=== PATIENT | female | born 1995 | race Caucasian/White ===

== ENCOUNTER 2018-10-16 13:26 | Emergency (ER) | payer OTHER ==
[2018-10-16 13:52] VITALS: BP 100/59
[2018-10-16] MEDS ORDERED: Ondansetron ODT TAB* 4 MG PO ONE (14:06)
--- NOTE | 2018-10-16 14:08 | UC ---
Abdominal Pain Female HPI - HPI Summary HPI Summary: 23 year old female with no significant pmhx here with right sided abdominal pain with nausea and vomiting and diarrhea. Reports symptoms started about 6 days ago with right sided abdominal pain, sharp with radiation to the flank. Reports the following day she had several episodes of NBNB vomiting with diarrhea. Patient reports 3-4 episodes of vomiting with countless number of diarrhea with no blood. No fever or chills. - History of Current Complaint Chief Complaint: UCAbdominalPain Stated Complaint: RT SIDE ABD PAIN Time Seen by Provider: 10/16/18 13:41 Hx Last Menstrual Period: 10/06/18 Onset/Duration: Gradual Onset Timing: Constant Severity Initially: Mild Pain Intensity: 7 Location: Discrete At: RLQ Radiates to: Flank Associated Signs and Symptoms: Positive: Negative, Decreased Appetite, Nausea, Vomiting, Diarrhea. Negative: Urinary Symptoms Allergies/Adverse Reactions: Allergies Allergy/AdvReac Type Severity Reaction Status Date / Time No Known Allergies Allergy Verified 10/16/18 13:52 Home Medications: Home Medications Ibuprofen [Advil] 400 mg PO ONCE PRN 10/16/18 [History Confirmed 10/16/18] Norethindr/Eth Estradiol(Nf) [Lo Loestrin Fe (NF)] 1 tab PO DAILY 10/16/18 [ History Confirmed 10/16/18] PMH/Surg Hx/FS Hx/Imm Hx Previously Healthy: Yes - Surgical History Surgical History: None - Social History Alcohol Use: Occasionally Substance Use Type: None Smoking Status (MU): Never Smoked Tobacco Review of Systems All Other Systems Reviewed And Are Negative: Yes Constitutional: Positive: Negative Skin: Positive: Negative Eyes: Positive: Negative Respiratory: Positive: Negative Cardiovascular: Positive: Negative Gastrointestinal: Positive: Abdominal Pain, Vomiting, Diarrhea, Nausea Genitourinary: Positive: Negative Motor: Positive: Negative Neurovascular: Positive: Negative Neurological: Positive: Negative Is Patient Immunocompromised?: No Physical Exam Triage Information Reviewed: Yes Vital Signs: Initial Vital Signs Temp 36.8 C 10/16/18 13:42 Pulse 88 10/16/18 13:42 Resp 16 10/16/18 13:42 BP 100/59 10/16/18 13:42 Pulse Ox 99 10/16/18 13:42 Eye Exam: Normal ENT: Positive: Other - dry mucosal membrane Dental Exam: Normal Neck exam: Normal Neck: Positive: 1 Respiratory Exam: Normal Cardiovascular Exam: Normal Abdomen Description: Positive: Other: - right lower and sarah umblical tenderness with guarding Musculoskeletal Exam: Normal Neurological Exam: Normal Psychological Exam: Normal Skin Exam: Normal Abd Pain Female Course/Dx - Course Course Of Treatment: Patient's UA negative for leuk or blood but +ketones & increased specific gravity with positive uro. Negative . Will instruct patient to go to the ED to r/o appendicitis. She is non-toxic, but clinically hypovolemic. Will give zofran po and dc. - Differential Dx/Diagnosis Differential Diagnosis: Appendicitis, Pneumonia, Urinary Tract Infection Provider Diagnosis: Abdominal pain Discharge - Sign-Out/Discharge Documenting (check all that apply): Patient Departure All imaging exams completed and their final reports reviewed: No Studies - Discharge Plan Condition: Good Disposition: HOME Referrals: No Primary Care Phys,NOPCP [Primary Care Provider] - Additional Instructions: Go to the emergency department for further evaluation. - Billing Disposition and Condition Condition: GOOD Disposition: Home
== END 2018-10-16 14:26 | disposition home or self-care (01) ==
LOC: UCCORT 13:26
DX: R10.31 Right lower quadrant pain (principal); R11.2 Nausea with vomiting, unspecified; R19.7 Diarrhea, unspecified
CPT/HCPCS: 81003; 84702; 99202; A9270-GY; G0463